=== PATIENT | female | born 1995 | race Caucasian/White ===

== ENCOUNTER 2020-03-08 21:26 | Emergency (ER) | payer SELFPAY ==
[2020-03-08] MEDS ORDERED: Ketorolac Tromethamine 30 MG/ML VIAL ONE (21:44)
[2020-03-08 21:51] LABS: Bilirubin Negative (Negative); Blood, Urine Large (Negative); Clarity Clear (Clear); Glucose, Urine (Dipstick) Negative (Negative); Ketone, Urine Negative (Negative); Leukocyte Negative (Negative); Nitrite Negative (Negative); Pregnancy Test - Urine (BHCG) Negative (Negative); Protein, Urine (Dipstick) Negative (Neg-Trace); Urobilinogen 0.2 mg/dL (Less than 2)
[2020-03-08 21:52] LABS: Pregu Control Background? CLEAR/WHITE (CLR/WHITE); Pregu Control Bar Appear? YES (CONTROL BAR)
[2020-03-08 21:56] LABS: Bacteria/HPF Rare-Few HPF (None Seen); Squamous Epithelial 0-3 HPF (0-3); WBC/HPF 0-3 HPF (0-3)
--- NOTE | 2020-03-09 07:21 | CT ---
CT ABDOMEN AND PELVIS WITHOUT CONTRAST: DATE: 03/08/2020. FINDINGS: A noncontrast CT was done for evaluation of bilateral flank pain. The scan as done without oral or I V Contrast. The lung bases are clear. The liver, spleen, pancreas, adrenal glands, kidneys, and abdominal aorta showed no acute findings within the limitations of a noncontrast study. A single gallstone appears t o be present in the gallbladder without evidence of wall thickening or stranding around the gallbladd er. The kidneys showed no sign of stones or hydronephrosis. No ureteral calculi were seen. The bowel is not distended and there is no sign of obstruction. The amount of fecal material present is moderate. No free air or free fluid was seen. CT of the pelvis shows no pelvic masses. The adnexal regions were unremarkable. There are no inflam matory changes. IMPRESSION: 1. Solitary gallstone. 2. At most, minimal constipation. Report called to Dr. Gonzales at 2211 on 03/08/2020. CODE CR POS: HOME
== END 2020-03-08 22:25 | disposition home or self-care (01) ==
LOC: BURERS 21:26
DX: R10.9 Unspecified abdominal pain (principal)
CPT/HCPCS: 74176; 81003; 81015; 81025; 96372; J1885